=== PATIENT | male | born 1960 | race Caucasian/White ===

== ENCOUNTER 2018-06-28 18:55 | Emergency (ER) | payer OTHER ==
[2018-06-28 19:37] VITALS: BP 139/94
== END 2018-06-28 20:51 | disposition left against medical advice (07) ==
LOC: ED 18:55
DX: Z53.21 Procedure and treatment not carried out due to patient leaving prior to being seen by health care provider (principal)

== ENCOUNTER 2018-07-02 23:58 | Emergency (ER) | payer OTHER ==
[~2018-07-02] VITALS: Ht 170.2 cm; Wt 78.0 kg
[2018-07-03 00:09] VITALS: Ht 170.2 cm; Wt 78.0 kg
[2018-07-03 02:18] VITALS: BP 135/93
== END 2018-07-03 02:18 | disposition home or self-care (01) ==
LOC: ED 23:58
DX: S46.912A Strain of unspecified muscle, fascia and tendon at shoulder and upper arm level, left arm, initial encounter (principal); S66.911A Strain of unspecified muscle, fascia and tendon at wrist and hand level, right hand, initial encounter; I10 Essential (primary) hypertension; Z85.47 Personal history of malignant neoplasm of testis; V23.4XXA Motorcycle driver injured in collision with car, pick-up truck or van in traffic accident, initial encounter; Y93.55 Activity, bike riding; Y92.413 State road as the place of occurrence of the external cause; Y99.8 Other external cause status
CPT/HCPCS: J1885; J3010